=== PATIENT | male | born 1975 | race Caucasian/White ===

== ENCOUNTER 2024-04-25 10:15 | Emergency (ER) | payer OTHER ==
[2024-04-25 10:32] VITALS: BMI 29.6
[2024-04-25] MEDS ORDERED: KETOROLAC TROMETHAMINE 30 MG/1 ML VIAL ONE (11:51)
[2024-04-25] MEDS ORDERED: LIDOCAINE 4% PATCH TP ONE (11:51)
[2024-04-25] MEDS ORDERED: ACETAMINOPHEN 500 MG TABLET (FP) ONE (11:51)
[2024-04-25] MEDS: KETOROLAC TROMETHAMINE 30 MG/1 ML VIAL IM ONE (11:59)
[2024-04-25] MEDS: LIDOCAINE 4% PATCH TP ONE (11:59)
[2024-04-25] MEDS: ACETAMINOPHEN 500 MG TABLET (FP) PO ONE (12:00)
[2024-04-25 13:08] LABS: BASO % 0.6 % (0-2.0); EOS % 0.1 % (0-4.5); HEMATOCRIT 42.8 % (35.4-49); HEMOGLOBIN 14.1 GM/dL (11.7-16.9); LYMPH % 7.3 % (8-40); MCH 30.3 pg (25.7-33.7); MEAN CELL VOLUME 91.7 fl (80-96); MEAN PLT VOLUME 10.2 fl (7.5-11.1); MONO % 11.3 % (3.8-10.2); NEUT % 80.7 % (42.8-82.8); PLATELET COUNT 147 10^3/uL (134-434); RBC 4.67 M/mm3 (4.00-5.60); RDW 13.6 % (11.9-15.9); WHITE BLOOD COUNT 17.8 K/mm3 (4.0-10.0)
[2024-04-25 13:22] VITALS: BP 112/75; PULSE 107; RESP 20; TEMP 98.8
[2024-04-25 14:00] LABS: POTASSIUM 3.7 mmol/L (3.5-5.1)
[2024-04-25 14:02] LABS: CALCIUM 8.8 mg/dL (8.5-10.1)
[2024-04-25 14:03] LABS: BLOOD UREA NITROGEN 32.7 mg/dL (7-18)
[2024-04-25 14:06] LABS: CREATININE 1.4 mg/dL (0.55-1.3)
[2024-04-25 14:08] LABS: BILIRUBIN,TOTAL 0.8 mg/dL (0.2-1); TOT PROT 7.4 g/dl (6.4-8.2)
[2024-04-25] MEDS ORDERED: AZITHROMYCIN 500 MG TABLET PO ONE (14:35)
[2024-04-25] MEDS ORDERED: AMOXICILLIN 500 MG CAPSULE (FP) PO ONE (14:36)
[2024-04-25] MEDS ORDERED: LIDOCAINE PATCH REMOVAL MC SCH (22:00)
== END 2024-04-25 14:48 | disposition home or self-care (01) ==
LOC: JERFT 10:15 → JER 10:15 → JERFT 14:48
PROC: 3E0233Z Introduction of Anti-inflammatory into Muscle, Percutaneous Approach (ICD-10-PCS; principal; 2024-04-25)
DX: M25.512 Pain in left shoulder (principal); M54.6 Pain in thoracic spine; X50.0XXA Overexertion from strenuous movement or load, initial encounter
CPT/HCPCS: 36415; 71046-TC-FY; 80053; 84484; 85025; 93005; 93010; 96372; 99285-25